=== PATIENT | male | born 1980 | race African-American/Black ===

== ENCOUNTER 2018-10-07 10:16 | Emergency (ER) | payer SELFPAY ==
[2018-10-07 10:21] VITALS: BP 135/95; PULSE 83; RESP 18; TEMP 36.3; O2SAT 98; BMI 24.4
--- NOTE | 2018-10-07 10:32 | ED.EXTPRO ---
HPI - Extremity Problem General Chief complaint: Extremity Problem,Nontraumatic Stated complaint: Rt Shoulder pain Time Seen by Provider: 10/07/18 10:32 Source: patient Mode of arrival: ambulatory Limitations: no limitations History of Present Illness HPI Narrative: This is a 38-year-old male comes to the emergency department complaint of right shoulder pain. Patient states been going on for about 2 days. He states that symptoms have not been improving. He has tried Percogesic which is bher-[id number] from the pharmacy. Patient states any sort of movement is worse. He states it is almost like a burning sensation on the shoulder skin. The pain does not radiate down his arm. It only goes about a quarter [address] the way down the arm. He has had a little bit of discomfort up towards the neck but not currently. He has had similar symptoms in the other shoulder and once before in the shoulder as well. Patient has not had any trauma. He works at [employer] but states he does not do a lot a lifting or moving his shoulder over his head. He does not have any weakness. He does have a lot of pain any time he tries to lift or move the shoulder or lift objects with his arm. No redness, no swelling no warmth. Patient denies any other medical problems denies any prior surgeries. He smokes tobacco, states he uses marijuana but denies any IV drug abuse. He has not had any fevers or chills. Related Data Previous Rx's Medication Instructions Recorded meloxicam [Mobic] 7.5 mg PO BID #14 tab 10/07/18 prednisone See Rx Instructions .ROUTE 10/07/18 .COMPLEX #15 each Allergies Allergy/AdvReac Type Severity Reaction Status Date / Time No Known Drug Allergies Allergy Verified 10/07/18 10:21 Review of Systems Review of Systems ROS Unobtainable: All systems reviewed & are unremarkable except as noted in HPI and below Constitutional Denies chills, Denies fever(s) and Denies weakness ENT Ears, Nose, Mouth, and Throat: Reports neck pain (pain radiates up towards neck sometimes.) Cardiovascular Denies chest pain, Denies edema and Denies dyspnea Respiratory Denies dyspnea Musculoskeletal Reports as per HPI, Denies back pain, Denies myalgias, Reports arthralgias, Denies joint swelling, Reports limited range of motion (2nd to pain), Denies muscle weakness, Reports neck pain (pain radiates up towards neck sometimes.), Denies numbness, Reports radiating pain into limb (1/4 way down arm.) and Denies tingling Integumentary/Breasts Denies erythema, Denies rash, Denies unusual bruising and Denies wounds Neurologic Denies focal weakness, Denies numbness, Denies tingling, Denies paresthesias and Denies weakness [facility] Social History Smoking Status: Current every day smoker Social History (Updated 10/07/18 @ 10:47 by Gosia Davison DO) Smoking Status: Current every day smoker alcohol intake: current substance use type: marijuana Exam Narrative Exam Narrative: GENERAL: Alert and oriented x three, well-nourished, well-appearing male in [id number] distress. HEENT: Head normocephalic, atraumatic, EOMI, pupils reactive, face symmetric, moist mucous membranes NECK: Supple, full range of motion, no vertebral tenderness of the cervical or thoracic spine. Patient has full range of motion. Patient has some mild discomfort in the paraspinal muscles on the right. Patient has negative Spurling's bilaterally. CARDIOVASCULAR: Regular rate and rhythm without murmurs, rubs or gallops. RESPIRATORY: Breath sounds equal bilaterally, no wheezes rales or rhonchi. ABDOMEN: Soft, nontender. Normoactive bowel sounds all 4 quadrants. No guarding or rebound, rigidity, no mass EXTREMITIES: Normal range of motion except in the right shoulder. Patient does not feel comfortable trying to lift it more than 90?, patient has tenderness to light palpation over the shoulder. No bony tenderness of the clavicle, scapula or lower arm/elbow or humerus. Patient does not have any warmth or swelling of the shoulder. He has 5/5 muscle strength with equal cad draftsman and with pull push. Radial pulses are 2+, no clubbing or edema. Patient has normal sensation throughout the arm, on all 5 fingers with normal movement of the hand and strength. Neurovascularly intact NEUROLOGICAL: Cranial nerves II through XII grossly intact. Moving all extremities SKIN: Warm, dry, no petechiae, no rashes or lesions. Initial Vital Signs Initial Vital Signs: Vital Signs Temperature 97.4 F L 10/07/18 10:21 Pulse Rate 83 10/07/18 10:21 Respiratory Rate 18 10/07/18 10:21 Blood Pressure 135/95 H 10/07/18 10:21 Pulse Oximetry 98 10/07/18 10:21 Course Orders Ordered: ED Orders 10/07/18 10:43 XR shoulder RT min 2V Stat Discontinued Medications Ketorolac Tromethamine (Toradol) 60 mg IM NOW ONE Stop: 10/07/18 10:44 Last Admin: 10/07/18 11:01 Dose: 60 mg Vital Signs - 8 hr 10/07/18 10:21 10/07/18 11:27 10/07/18 11:28 Temperature 97.4 F L Pulse Rate 83 68 Pulse Rate [Right Radial] 68 Respiratory Rate 18 16 Blood Pressure 135/95 H 158/85 H Pulse Oximetry 98 98 MDM - Extremity (Nontraumatic) Imaging Data Right shoulder x-ray: Radiologist's impression: [address] [address] XRay Report Signed Patient: Blayne PorterMR#: [id number] : 1980Acct:[id number] Age/Sex: 38 / MDate of Service: 10/07/18 Loc: ED Accession Number: [id number] Procedure: XR shoulder RT min 2V Ordering Provider: Gosia Davison D.O. PROCEDURE: XR SHOULDER RT MIN 2V INDICATIONS: right shoulder pain, no trauma, had in past, TECHNIQUE: 3 views of the shoulder were acquired. COMPARISON: None. FINDINGS: Bones: No fractures or dislocations. No suspicious bony lesions. Visualized ribs appear intact. A small bone island involving the proximal humerus is present. Soft tissues: No suspicious soft tissue calcifications. IMPRESSION: No acute osseous abnormality of the right shoulder. Dictated by: Wilian Merida M.D. on 10/07/2018 at 10:12 Approved by: Wilian Merida M.D. on 10/07/2018 at 10:12 [facility] Narrative Medical decision making narrative: I suspect patient's pain may be from his neck as he has had issues in both shoulders in the past although it could be osteoarthritis or similar symptoms. My suspicion for septic joint is very low. My suspicion for musculoskeletal as moderate. Patient was given a shot of Toradol. We discussed doing a short course of oral steroids as well as pain medication. The patient was given option for referral for primary care and/or Orthopedics for follow-up. Discharge Plan Departure Patient Disposition: Home Clinical Impression: Pain in right shoulder Qualifiers: Chronicity: acute Qualified Code(s): M25.511 - Pain in right shoulder Discharge Date/Time: 10/07/18 11:29 Interventions: ED Discharge Assessment Last Done: 10/07/18 11:28 Instructions: DI for Shoulder Pain Activity Restrictions/Additional Instructions: Follow-up with primary care and/or orthopedic surgery. The referral number to help me find a PCP is [phone]. Call tomorrow morning for an appointment. Included below is referral for orthopedic surgery if you prefer. Take steroids daily until gone. Take this medication with food. Take pain medication as needed, you may also take Tylenol up to a 1000 mg every 8 hours as needed with this medication. Return to the emergency department for fevers, new redness, swelling of the shoulder, new chest pain, shortness of breath, passing out, weakness of your extremity inability feel it or move your extremity or other new or concerning symptoms. Prescriptions: New prednisone 10 mg tablets,dose pack See Rx Instructions .ROUTE .COMPLEX Qty: 15 RF: 0 meloxicam [Mobic] 7.5 mg tablet 7.5 mg PO BID Qty: 14 RF: 0 Referrals: Ángel Coy MD [Primary Care Provider] - Rebecca Caballero MD [Physician] - Stand Alone Forms: Work Release Note
--- NOTE | 2018-10-07 10:43 | DI.RAD.S_ITS ---
PROCEDURE: XR SHOULDER RT MIN 2V INDICATIONS: right shoulder pain, no trauma, had in past, TECHNIQUE: 3 views of the shoulder were acquired. COMPARISON: None. FINDINGS: Bones: No fractures or dislocations. No suspicious bony lesions. Visualized ribs appear intact. A small bone island involving the proximal humerus is present. Soft tissues: No suspicious soft tissue calcifications. IMPRESSION: No acute osseous abnormality of the right shoulder. Dictated by: Wilian Merida M.D. on 10/07/2018 at 10:12 Approved by: Wilian Merida M.D. on 10/07/2018 at 10:12
[2018-10-07] MEDS: KETOROLAC 60 MG/2 ML VIAL IM (11:01)
[2018-10-07 11:27] VITALS: PULSE 68
[2018-10-07 11:28] VITALS: BP 158/85; PULSE 68; RESP 16; O2SAT 98
== END 2018-10-07 11:29 | disposition home or self-care (01) ==
PROVIDERS: Emergency Provider Emergency Medicine; PCP Family Medicine
DX: M25.511 Pain in right shoulder (principal)
CPT/HCPCS: 73030; 96372; 99282; 99283; J1885

== ENCOUNTER 2020-09-01 15:08 | Emergency (ER) | payer SELFPAY ==
[2020-09-01 15:16] VITALS: BP 134/86; PULSE 88; RESP 16; TEMP 37.1; O2SAT 100
--- NOTE | 2020-09-01 17:31 | PC.NURSE ---
uncetain etiology, states he thinks he might have bumped it on something and it blew up into a huge blister. blister was popped by patient a few days ago and the wound continues to drain what he reports as a yellow orangish fluid. 2 open areas distal one measuring .7cm diameter. proximal one is 1cm in diameter. no streaking or spreading of red area distal or proximal to wound. denies fevers, n/v/d
--- NOTE | 2020-09-01 17:45 | ED.SKABFB ---
HPI - Skin/Abscess/Foreign Bdy General Chief complaint: Skin/Abscess/Foreign Body Stated complaint: RIGHT LEG WOUNDS Time Seen by Provider: 09/01/20 17:35 Source: patient Mode of arrival: Ambulatory Limitations: no limitations History of Present Illness HPI narrative: Patient is a 40-year-old male here for evaluation of a wound to the upper outer portion of his right thigh. He states that it started several days ago. It was very large and then developed a spot on top of the swelling. He states that it did drain at 1 point. Then there was another area just above the 1st 1 that started to drain as well. He states that overall the wound looks better than what it did before but there are 2 small areas that are red and somewhat tender to touch. He has not had any fevers. He has been cleaning it with topical antibiotic ointment and also alcohol washes. Related Data Previous Rx's Medication Instructions Recorded meloxicam [Mobic] 7.5 mg PO BID #14 tab 10/07/18 prednisone See Rx Instructions .ROUTE 10/07/18 .COMPLEX #15 each Allergies Allergy/AdvReac Type Severity Reaction Status Date / Time No Known Drug Allergies Allergy Verified 10/07/18 10:21 Review of Systems Constitutional Constitutional: Denies fatigue, Denies fever(s) and Denies headache(s) Eyes Eyes: Denies change in vision ENT Ears, Nose, Mouth, and Throat: Denies headache(s) and Denies sore throat Cardiovascular Cardiovascular: Denies chest pain and Denies dyspnea Respiratory Respiratory: Denies cough and Denies dyspnea Gastrointestinal Gastrointestinal: Denies abdominal pain, Denies nausea and Denies vomiting Genitourinary Genitourinary: Denies dysuria Genitourinary: Denies dysuria Musculoskeletal Musculoskeletal: Denies arthralgias and Denies myalgias Integumentary/Breasts Skin/Breast: Reports lesions Neurologic Neurologic: Denies behavioral changes, Denies confusion and Denies headache(s) Psychiatric Psychiatric: Denies behavioral changes and Denies confusion Endocrine Endocrine: Denies fatigue Hematologic/Lymphatic On Anticoagulants: No Allergic/Immunologic Allergic/Immunologic: Denies urticaria Patient History Medical History Kidney stone on left side Social History Smoking Status: Current every day smoker alcohol intake: current substance use type: marijuana Smoking Status: Current every day smoker Substance Use Type: does not use Exam Initial Vital Signs Initial Vital Signs: Vital Signs Temperature 98.8 F 09/01/20 15:16 Pulse Rate 88 09/01/20 15:16 Respiratory Rate 16 09/01/20 15:16 Blood Pressure 134/86 09/01/20 15:16 Pulse Oximetry 100 09/01/20 15:16 Const General: cooperative and comfortable Limitations: mental status not altered HENMT Head: normal to inspection and normocephalic Eyes General: appearance normal, both eyes and all related structures Resp Effort & Inspection: normal respiratory effort Cardio Rate: regular rate GI Inspection: non-distended Skin Other: Patient with a 10 cm x 5 cm area of bruising on his right lateral thigh. Approximately mid femur. Has 2 small areas on the inside of this 1 that is 1 cm x 1 cm round to the other that is 0.5 cm x 0.5 cm round with granulation tissue. There is no surrounding erythema. No drainage. Neuro General: patient alert, patient awake and patient oriented x3 Cognition: normal cognition Speech: speech normal Extrem General: capillary refill normal Psych Appearance: grossly normal and well kempt Course Orders Ordered: ED Orders 09/01/20 17:29 Wound Culture and Gram Stain Stat Vital Signs Vital signs: Vital Signs - 8 hr 09/01/20 15:16 Temperature 98.8 F Pulse Rate 88 Respiratory Rate 16 Blood Pressure 134/86 Pulse Oximetry 100 MDM - Skin/Abscess/Foreign Bdy MDM Narrative Medical decision making narrative: The area on the thigh that the patient is concerned about actually looks very well. It has the appearance of somebody who at 1 point had an abscess that spontaneously drained in this does fit his clinical presentation. The 2 areas of redness that he is concerned about are 2 areas where there is granulation tissue most likely from secondary healing. There is no indication for antibiotics. Informed him that he should avoid putting alcohol washes on the area but if he wanted to use topical antibiotic ointment this would be okay. We discussed covering it with a bandage. There is no indication for imaging. He was provided reassurance given return precautions. He expressed understanding and agreement. Discharge Plan Departure Patient Disposition: Home Clinical Impression: Leg wound, right Activity Restrictions/Additional Instructions: The wound on your right leg appears well. I recommend that you continue to use topical antibiotic ointment and cover with a bandage. Contact your primary provider for follow-up. Return to the emergency department for any new or worsening symptoms Prescriptions: No Action prednisone 10 mg tablets,dose pack See Rx Instructions .ROUTE .COMPLEX Qty: 15 RF: 0 meloxicam [Mobic] 7.5 mg tablet 7.5 mg PO BID Qty: 14 RF: 0 Referrals: Ángel Coy MD [Primary Care Provider] -
[2020-09-01 18:26] VITALS: BP 128/67; PULSE 74; RESP 15; O2SAT 99
== END 2020-09-01 18:28 | disposition home or self-care (01) ==
PROVIDERS: Emergency Provider Emergency Medicine; PCP Family Medicine
DX: S71.101A Unspecified open wound, right thigh, initial encounter (principal)
CPT/HCPCS: 87070; 87075; 87205; 99281; 99282